=== PATIENT | male | born 1950 | race Caucasian/White ===

== ENCOUNTER 2017-09-29 09:29 | Outpatient (CLI) | payer BC ==
[2017-10-26 12:52] VITALS: BMI 28.6
== END 2017-09-29 09:30 | disposition home or self-care (01) ==
LOC: BICULT 09:29
PROVIDERS: ATTEND Internal Medicine Gastroenterology
DX: I85.00 Esophageal varices without bleeding (principal); K22.9 Disease of esophagus, unspecified; K82.4 Cholesterolosis of gallbladder
CPT/HCPCS: 76705

== ENCOUNTER → 2017-10-27 | Day surgery (SDC) | payer BC ==
[~2017-10-27] MED LIST: Fentanyl 100 MCG/2 ML VIAL ONE; Midazolam HCl 2 mg/2 ml Vial ONE; Sodium Bicarbonate 2.5 MEQ/5 ML VIAL ONE
[2017-10-27 08:05] LABS: #Basophils 0.1 thou/uL (0.0-0.2); #Eosinphils 0.6 thou/uL (0.0-0.7); #Monocytes 0.5 thou/uL (0.11-0.59); #Neutrophils 3.4 thou/uL (1.40-6.50); %Basophils 1.1 % (0.0-1.0); %Eosinophils 11.1 % (0.0-10.0); %Lymphocytes 18.3 % (21.0-51.0); %Monocytes 8.9 % (0.0-10.0); %Neutrophils 60.7 % (42.0-75.0); Hemoglobin 15.6 g/dL (14.0-18.0); Mean Corpuscular HGB CONC 33.9 g/dL (32.0-36.0); Mean Corpuscular Hemoglobin 32.7 pg (27.0-31.0); Mean Corpuscular Volume 96.4 fl (80.0-94.0); Mean Platelet Volume 8.4 fL (7.4-10.4); Platelet Count 171 thou/uL (130-400); RBC Distribution Width 12.7 % (11.5-14.5); Red Blood Cell (RBC) Count 4.77 mill/uL (4.70-6.10); White Blood Cell (WBC) Count 5.5 thou/uL (4.8-10.8)
[2017-10-27 08:13] LABS: Prothrombin Time 13.7 SEC (12.0-14.7)
[2017-10-27 08:14] LABS: PTT 27.2 SEC (22.9-36.1)
[2017-10-27 08:41] VITALS: TEMP 97.4
--- NOTE | 2017-10-27 14:47 | ULT ---
ULTRASOUND GUIDED RANDOM RIGHT HEPATIC LOBE BIOPSY: Date: 10-27-17 History: Reported hepatomegaly, esophageal mass, and varices. Hepatic biopsy was requested. Technique: Procedure including risks and complications were explained to the patient and informed con sent was obtained. Conscious sedation was performed with the intravenous administration of Fentanyl a nd Versed. Approximately 25 micrograms of Fentanyl and 0.5 milligrams were administered intravenously during the exam. Limited sonographic evaluation of the liver was performed. An area in the mid axillary line right upp er quadrant was marked and meticulously prepped and draped in the usual sterile fashion. Skin and sub cutaneous tissues were infiltrated with buffered 1% Lidocaine for local anesthesia. Utilizing [facility] real-time ultrasound guidance, a 17 gauge guide needle was advanced into the most peripheral aspe ct of the right hepatic lobe. Utilizing coaxial technique, a single 18 gauge core needle biopsy speci men was obtained. Autologous clot was then advanced into the most peripheral aspect of the right hepa tic lobe, and the needle was removed. Manual compression was applied for approximately 10 minutes. Fo llow up sonographic evaluation demonstrates no perihepatic fluid or findings to suggest hematoma. Pat ient's vital signs remained stable during the procedure as well as post procedure. A dry sterile dres sing was place and patient was placed in a right lateral position for one hour. Patient was transport ed to radiology nurses holding for further monitoring prior to discharge. IMPRESSION: Technically successful ultrasound guided random right hepatic lobe biopsy. Pathology is currently german tran. POS: [facility]
== END ==
LOC: ULT 07:48
PROVIDERS: ATTEND Internal Medicine Gastroenterology
PROC: 0FB13ZX Excision of Right Lobe Liver, Percutaneous Approach, Diagnostic (ICD-10-PCS; principal; 2017-10-27)
DX: K76.0 Fatty (change of) liver, not elsewhere classified (principal); I85.00 Esophageal varices without bleeding; K22.9 Disease of esophagus, unspecified; J30.89 Other allergic rhinitis; F17.290 Nicotine dependence, other tobacco product, uncomplicated; Z91.011 Allergy to milk products; Z91.012 Allergy to eggs; Z79.82 Long term (current) use of aspirin; Z79.899 Other long term (current) drug therapy
CPT/HCPCS: 36415; 47000; 76942; 85025; 85610; 85730; 88307; 88313; 99152; 99153; J2250; J3010

== ENCOUNTER 2020-07-10 14:38 | Inpatient (IN) | payer BC ==
[~2020-07-10 14:38] MED LIST changes: -Fentanyl 100 MCG/2 ML VIAL ONE; +Iopamidol-370 76% 500 ML 1 ML ONE; -Midazolam HCl 2 mg/2 ml Vial ONE; -Sodium Bicarbonate 2.5 MEQ/5 ML VIAL ONE
[2020-07-10] MEDS ORDERED: Albuterol 200 PUFF (6.7GM INHALER) ONE (15:45)
[2020-07-10] MEDS ORDERED: cefTRIAXone\\ROCEPHIN 2 GM VIAL ONE (15:45)
[2020-07-10] MEDS ORDERED: Magnesium 2 GM/50 ML BAG (IN WATER) ONE (15:45)
[2020-07-10] MEDS ORDERED: Furosemide 40 MG/4 ML VIAL ONE (15:45)
[2020-07-10] MEDS ORDERED: Azithromycin 500 MG VIAL ONE (15:45)
--- NOTE | 2020-07-10 15:51 | RAD ---
RADIOGRAPH CHEST 1 VIEW: DATE: 07/10/2020 TIME: 3:34 PM HISTORY: 70-year-old male with dyspnea COMPARISON: 11/27/2015 FINDINGS: There is a new finding of heterogeneously distributed bilateral reticulonodular interstitial infiltra yohannes. Right midlung field and bilateral bases are most prominent. There is relative sparing of the left mid and upper lung zones. No cardiomegaly. Ectasia and tortuosity of thoracic aorta. Lateral cos tophrenic angles are sharp. No pneumothorax. IMPRESSION: Bilateral heterogeneously distributed reticulonodular infiltrates. These are nonspecific, but one pos sibility is bilateral pneumonia such as COVID-19.
[2020-07-10 16:22] LABS: Hemoglobin 15.9 g/dL (14.0-18.0); Mean Corpuscular HGB CONC 32.2 g/dL (32.0-36.0); Mean Corpuscular Hemoglobin 33.7 pg (27.0-31.0); Mean Platelet Volume 8.8 fL (7.4-10.4); Platelet Count 169 thou/uL (130-400); RBC Distribution Width 14.5 % (11.5-14.5); Red Blood Cell (RBC) Count 4.72 mill/uL (4.70-6.10); White Blood Cell (WBC) Count 7.4 thou/uL (4.8-10.8)
[2020-07-10 16:38] LABS: ALT (SGPT) 29 U/L (8-55); AST (SGOT) 61 U/L (5-34); Albumin 4.1 g/dL (3.4-4.8); Alkaline Phosphatase 169 U/L (40-110); Anion Gap 21 mmol/L (10-20); BUN (Urea Nitrogen) 19 mg/dL (8.4-25.7); Bilirubin, Total 0.7 mg/dL (0.2-1.2); CK (CPK) 75 U/L (30-200); Calc. Creatinine Clearance 0 mL/min (70-130); Calcium 8.9 mg/dL (7.8-10.44); Carbon Dioxide 31 mmol/L (23-31); Chloride 82 mmol/L (98-107); Globulin 2.9 g/dL (2.4-3.5); Glucose 104 mg/dL (80-115); Lipase 11 U/L (8-78); Magnesium 1.8 mg/dL (1.6-2.6); Potassium 4.6 mmol/L (3.5-5.1); Sodium 129 mmol/L (136-145)
[2020-07-10 16:45] LABS: MDiff Complete? YES
[2020-07-10 16:46] LABS: Band 34 % (5-11); Lymphocytes 2 % (21-51); Macrocytosis SLIGHT = 6-15 cells (100X) (0-5/hpf); Monocytes 7 % (0-10); Neutrophil 56 % (42-75); Platelet Morphology Comment Appears Adequate; Polychromasia SLIGHT = 2-3 cells (100X) (0-2/hpf); Reactive Lymphocytes 1 % (0-10); Target Cells SLIGHT = 2-5 cells (100X) (0-1/hpf)
[2020-07-10 17:07] LABS: CKMB 7.9 ng/mL (0-6.6)
[2020-07-10 17:34] LABS: SARS-CoV-2 NAA Rapid Test Not Detected (NotDetected)
[2020-07-10 19:08] LABS: Lactic Acid 2.1 mmol/L (0.5-2.2)
[2020-07-10 19:17] LABS: Troponin I 0.126 ng/mL (< 0.028)
[2020-07-10] MEDS ORDERED: Ondansetron ODT 4 MG TAB PO PRN (19:47)
[2020-07-10] MEDS ORDERED: Senokot S 8.6-50 MG TAB PO PRN (19:47)
[2020-07-10] MEDS ORDERED: Bisacodyl 5 MG TAB PO PRN (19:47)
[2020-07-10 20:59] VITALS: BMI 28.4
[2020-07-10 22:37] LABS: Troponin I 0.171 ng/mL (< 0.028)
--- NOTE | 2020-07-10 22:43 | PDOC.FPRHP ---
- History of Present Illness Chief Complaint: SOB History of Present Illness: Pt is a 70 yo M with PMH of COPD, HTN, GERD, HLD, depression, alcoholism who presents today with cc of SOB. Patient states he has been short of breath since April but over the last few weeks this has increased. His encouraged him to come to the ED to get evaluated. He states he has been unable to lay flat in bed at night and has been sleeping in a recliner. He also endorses LE swelling which makes it hard for him to walk. He states he usually has issues with allergies and it makes it hard for him to breathe, but does not take me dications for this. He thinks his allergies is what is causing his shortness of breath. He endorses a cough which is new over the last few days with increased sputum production. He does not require home O2. He denies fever, chills, GARSIA, CP, abdominal pain. He sees Dr. Brower as his endocrinology physician but does not have a basketballs and footballs reverser he regularly sees. He saw one in the past only for a stress test. ED Course: Rocephin, Azithromycin, Lasix - Allergies/Adverse Reactions Allergies Allergy/AdvReac Type Severity Reaction Status Date / Time No Known Allergies Allergy Unverified 10/26/17 12:43 - Home Medications Medication Instructions Recorded Confirmed Type Albuterol Sulfate [Proair HFA] 1 puff INH Q4HR PRN 10/26/17 07/11/20 History Amlodipine Besylate [amLODIPine 10 mg PO DAILY 10/26/17 07/11/20 History Besylate] Ascorbic Acid [Vitamin C] 500 mg PO DAILY 10/26/17 07/11/20 History Aspirin 325 mg PO DAILY PRN 10/26/17 07/11/20 History Citalopram Hydrobromide 20 mg PO DAILY 10/26/17 07/11/20 History [Citalopram HBr] Fluticasone Propionate [Flovent 50 mcg IH PRN PRN 10/26/17 07/11/20 History Diskus] Levocetirizine Dihydrochloride 5 mg PO DAILY PRN 10/26/17 07/11/20 History [Xyzal] Lisinopril 40 mg PO DAILY 10/26/17 07/11/20 History Omeprazole Magnesium [Prilosec] 10 mg PO DAILY 10/26/17 07/11/20 History Pravastatin Sodium 20 mg PO HS 10/26/17 07/11/20 History Psyllium Husk [Metamucil] 0.52 gm PO PRN PRN 10/26/17 07/11/20 History Umeclidinium/Vilanterol [Anoro 1 box INH PRN PRN 10/26/17 07/11/20 History Ellipta 62.5/25 MCG INH] - History PMHx: COPD, HTN, GERD, HLD, Depression, alcoholism PSHx: carpal tunnel surgery FHx: stroke in parent Social: 08/09-1ppd for 50+ years, occasional marijuana use, daily alcohol use (unable to disclose how much daily) - Review of Systems General: reports: fatigue. denies: fever/chills Respiratory: reports: cough, shortness of breath, exercise intolerance Cardiovascular: reports: edema. denies: chest pain Gastrointestinal: denies: nausea, vomiting, abdominal pain Skin: denies: rashes Neurological: denies: syncope, weakness Psychological: denies: anxiety, depression - Vital signs BP: 150/92 HR: 96 RR: 22 Tmax: 98.3 Pox: 97% on HF Wt: 85kg - Physical Exam Constitutional: awake, alert and oriented HEENT: normocephalic and atraumatic, grossly normal vision, grossly normal hearing -HEENT: JVD apparent on exam up to midneck when sitting up right Neck: supple Heart: RRR, normal S1/S2, no murmurs/rubs/gallops -Heart: 2+ edema in b/l LE -Lungs: diffuse wheezing, distant lung sounds. on HF Abdomen: soft, non-tender Musculoskeletal: normal tone, ROM grossly normal Neurological: no focal deficit Skin: no rash/lesions, no jaundice Psychiatric: normal mood and affect, good judgment and insight FMR H&P: Results - Labs Result Diagrams: 07/11/20 02:42 07/11/20 02:42 Lab results: WBC 7.4 thou/uL (4.8-10.8) 07/10/20 15:52 Hgb 15.9 g/dL (14.0-18.0) 07/10/20 15:52 Hct 49.3 % (42.0-52.0) 07/10/20 15:52 MCV 104.0 fL (78.0-98.0) H 07/10/20 15:52 Plt Count 169 thou/uL (130-400) 07/10/20 15:52 Band Neuts % (Manual) 34 % (5-11) H 07/10/20 15:52 Sodium 129 mmol/L (136-145) L 07/10/20 15:52 Potassium 4.6 mmol/L (3.5-5.1) 07/10/20 15:52 Chloride 82 mmol/L (98-107) L 07/10/20 15:52 Carbon Dioxide 31 mmol/L (23-31) 07/10/20 15:52 BUN 19 mg/dL (8.4-25.7) 07/10/20 15:52 Creatinine 0.80 mg/dL (0.7-1.3) 07/10/20 15:52 Glucose 104 mg/dL (80-115) 07/10/20 15:52 Lactic Acid 2.1 mmol/L (0.5-2.2) 07/10/20 18:42 Calcium 8.9 mg/dL (7.8-10.44) 07/10/20 15:52 Total Bilirubin 0.7 mg/dL (0.2-1.2) 07/10/20 15:52 AST 61 U/L (5-34) H 07/10/20 15:52 ALT 29 U/L (8-55) 07/10/20 15:52 Alkaline Phosphatase 169 U/L (40-110) H 07/10/20 15:52 Creatine Kinase 75 U/L (30-200) 07/10/20 15:52 CK-MB (CK-2) 7.9 ng/mL (0-6.6) H* 07/10/20 15:52 B-Natriuretic Peptide 265.1 pg/mL (0-100) H 07/10/20 15:52 Serum Total Protein 7.0 g/dL (5.8-8.1) 07/10/20 15:52 Albumin 4.1 g/dL (3.4-4.8) 07/10/20 15:52 Lipase 11 U/L (8-78) 07/10/20 15:52 - EKG Interpretation EKG: NSR FMR H&P: A/P - Plan Hypoxia 2/2 COPD exacerbation and heart failure exacerbation -satting in the 80s without O2. Satting in the 90s with high flow -CXR suggestive of COVID PNA, but rapid swab is negative -follow up chest CT -history of COPD * increased cough, sputum production, new oxygen requirement * on home inhalers * Duonebs YAHIR q6H, q4H PRN * prednisone 40 mg daily for 5 days, start date 07/10 -no history of HF * JVD present on exam, 2+ pitting edema b/l LE * BNP 265 * echo pending * Lasix naive, will initiate Lasix 40mg BID Elevated Dimer -elevated at 1.05 -follow up CTA Elevated troponin -denies CP -.054>.126 -continue to trend Transaminitis -ALT 61 and Alk phos 169. possibly transient vs 2/2 poor perfusion on DDx -follow up outpatient HTN -aware, continue home meds GERD -aware, continue home meds HLD -aware, continue home meds Depression -aware, continue home meds Daily alcohol use -aware, ASE protocol in place PCP: [facility] Fluids: KVO Diet: Code: FULL DVT ppx: Lovenox Dispo: admit to IMCU, inpatient. Anticipated LOS > 48 hours FMR H&P: Upper Level - Plan Date/Time: 07/10/202241 I, Arun See PGY3, have evaluated this patient and agree with findings/plan as outlined by architect intern resident. Pertinent changes/additions are listed here. 70-year-old man with medical history of COPD and CHF presenting for worsening shortness of breath. On my interview he was a challenging historian and unable to describe onset of symptoms but states that he has been using his albuterol inhaler much more recently. He is possibly with advanced COPD considering he takes Trelegy which is triple therapy. Dr. Brower is his endocrinology physician. He is not aware of any transforming factors or exacerbating factors to his symptoms. No fever no chills no significant sick contacts. He also states his legs have been swelling recently and that he has to sleep in a recliner with his legs propped up to "improve circulation ". He has seen Dr. Hinojosa once for a stress test but has no previous diagnosis of heart failure per patient. On exam he is tachypneic at 21 and has distant breath sounds with expiratory wheezing bilaterally, his heart has regular rate and rhythm with no murmur, he is on 4 L of oxygen satting in the mid 90s. 2+ lower extremity edema, elevated JVD extending up to the ear when laying back to 30 degrees. A/P Volume overload A- Exam suspicious for CHF exacerbation vs. R heart strain though no Dx. of CHF P- f/u on CTA chest to r/o PE/R heart failure -will give additional lasix tonight and start BID dosing -TTE COPD exacerbation A- stable on HFNC, distant breath sounds and wheezing on exam. P- prednisone x5 days, duonebs EtOH missuse A- drinks unknown amount of liquor per day, starts in AM but desires to quit P- ASE protocol, will have low threshold to start librium taper if he requires benzos PUI A- negative covid test in ER however with new O2 requirement and suspicious CXR will keep on precautions for now. P- droplet precautions -repeat PCR test Transaminitis A- ALT 61 and Alk phos 169. possibly transient vs 2/2 poor perfusion on DDx P- f/u outpt Depression -pt does not know home med, will restart if he remembers GERD, HLD -continue home medications CODE: FULL PCP: [facility] IVF: KVO dispo: inpatient tele, anticipate greater than 2 midnights Addendum - Attending - Attending Attestation Date/Time: 07/11/20 1040 I personally evaluated the patient and discussed the management with Dr. Valles and Esa last night at time of admission I agree with the History, Examination, Assessment and Plan documented above with any addition or exceptions noted below.
[2020-07-10] MEDS ORDERED: predniSONE 20 MG TAB PO SCH (23:00)
[2020-07-10] MEDS ORDERED: Furosemide 20 MG/2 ML VIAL SLOW IVP SCH (23:00)
--- NOTE | 2020-07-10 23:06 | CT ---
CT ANGIOGRAM THORAX WITH IV CONTRAST AND 3D RECONSTRUCTIONS: 07/10/20 HISTORY: Shortness of breath for several days. FINDINGS: No filling defects are seen in the pulmonary arteries to suggest a pulmonary embolus. The thoracic aorta is normal in caliber without evidence of an aortic dissection. Vascular calcificat ions are seen in the thoracic aorta as well as in the coronary arteries. The esophagus is dilated and filled with heterogeneous material including a focal area of increased d ensity material within the thoracic esophagus. Esophagus is dilated throughout the thoracic spine. Th ere is a tiny gas density focus seen at the posterolateral aspect of the upper thoracic trachea proba lola related to tiny tracheal diverticulum. There is a minimal amount of heterogeneous material within the proximal thoracic trachea which may be related to secretions. There are a few filling defects seen within the lower lobe bronchi with mild peribronchial thickening present which could be related to bronchiolitis with filling defects possibly related to mucosal plu gging. There is minimal bronchiectasis at the posteromedial right lung base. There are interstitial densities as well as patchy parenchymal air space densities seen in the upper lobes bilaterally, greater on the right with small focal areas of consolidation in the right upper lo be. Findings are worrisome for infectious or inflammatory process. A typical infectious process is a possibility. There are bibasilar areas of consolidation probably related to bibasilar atelectasis. There are mild emphysematous changes with peripheral blebs seen scattered within the lungs bilaterall y, greater in the upper lung zones than on the right. Coronary artery calcifications are present. The heart is normal in size. There is mildly prominent soft tissue density in each hilar region which could be related to reactive lymphadenopathy. No acute findings are seen in the visualized upper abdomen. Calcified granulomata are seen in the spl een. There is a subcentimeter too small to characterize hypodense lesion in the superior pole right kidney . IMPRESSION: 1. Interstitial and patchy parenchymal densities in the upper lobes bilaterally with small focal areas of consolidation in the right upper lobe. These findings are worrisome for infectious process and possibly atypical infectious process. This is not typical pattern and location for aspiration pne umonitis. 2. Minimal bronchiectasis right lower lobe. A few filling defects are seen in bilateral lower lo be bronchioles which could be related to mucous plugging or debris. 3. Dilatation of the esophagus with heterogeneous debris/material within the esophagus including increased density material in the mid esophagus. 4. Mildly prominent hilar lymph nodes which may be represent reactive lymphadenopathy. 5. No CT evidence of a pulmonary embolus. 6. Small amount of debris/secretions within the posterior upper thoracic trachea. 7. Periapical lucency involving posterior right mandibular teeth partially imaged suggesting per iapical abscess. POS: [facility]
[2020-07-11 03:02] LABS: Hemoglobin 14.3 g/dL (14.0-18.0); Mean Corpuscular HGB CONC 32.2 g/dL (32.0-36.0); Mean Platelet Volume 8.8 fL (7.4-10.4); Platelet Count 177 thou/uL (130-400); RBC Distribution Width 14.4 % (11.5-14.5); Red Blood Cell (RBC) Count 4.32 mill/uL (4.70-6.10); White Blood Cell (WBC) Count 4.6 thou/uL (4.8-10.8)
[2020-07-11 03:10] LABS: SARS-CoV-2 MS2 Positive; SARS-CoV-2 N Gene Negative; SARS-CoV-2 S Gene Negative; SARS-CoV-2 by NAA Not Detected (NotDetected); SARS-CoV-2 orf1ab Negative
[2020-07-11 03:37] LABS: Anion Gap 15 mmol/L (10-20); BUN (Urea Nitrogen) 18 mg/dL (8.4-25.7); Carbon Dioxide 35 mmol/L (23-31); Chloride 83 mmol/L (98-107); Potassium 4.1 mmol/L (3.5-5.1); Sodium 129 mmol/L (136-145)
[2020-07-11 03:38] LABS: ALT (SGPT) 20 U/L (8-55); AST (SGOT) 34 U/L (5-34); Albumin 3.6 g/dL (3.4-4.8); Alkaline Phosphatase 129 U/L (40-110); Bilirubin, Total 0.4 mg/dL (0.2-1.2); Calc. Creatinine Clearance 108 mL/min (70-130); Calcium 8.7 mg/dL (7.8-10.44); Globulin 2.8 g/dL (2.4-3.5); Glucose 134 mg/dL (80-115); Protein, Total 6.4 g/dL (5.8-8.1)
[2020-07-11] MEDS ORDERED: FLU VACC QS2020-21(65YR UP)/PF 240 MCG/0.7 ML SYRINGE IM ONE (03:45)
[2020-07-11 03:54] LABS: Band 9 % (5-11); Lymphocytes 4 % (21-51); MDiff Complete? YES; Monocytes 2 % (0-10); Neutrophil 85 % (42-75); Toxic Granulation SLIGHT
[2020-07-11 04:00] LABS: Troponin I 0.223 ng/mL (< 0.028)
--- NOTE | 2020-07-11 06:20 | PDOC.FM ---
- Subjective Subjective: Mr. Velasquez reports feeling better this morning. He says his breathing has improved. He explains he has been worsening for several months in regards to having trouble breathing. He complains of some abdominal gas and discomfort but says he drank a Sprite and that helped. - Objective Vital Signs & Weight: Vital Signs (12 hours) Temp Pulse Ox 07/11/20 04:00 98.8 F 07/11/20 00:45 99 07/10/20 20:14 97.3 F L 98 Weight Weight 84.776 kg Most Recent Monitor Data Heart Rate from ECG 93 NIBP 151/97 NIBP BP-Mean 115 Respiration from ECG 32 SpO2 100 I&O: 07/09/20 07/10/20 07/11/20 06:59 06:59 06:59 Intake Total 720 Output Total 875 Balance -155 Result Diagrams: 07/11/20 02:42 07/11/20 02:42 Radiology Reviewed by me: Yes Radiology: CTA: b/l upper lobe consolidations, bronchiectasis, hilar lymphadenopathy, debris in trachea, periapical abscess in mandibular teeth Phys Exam - Physical Examination Constitutional: NAD HEENT: moist MMs, sclera anicteric Neck: full ROM (JVD on exam) Respiratory: wheezing present Cardiovascular: RRR Gastrointestinal: soft, non-tender Musculoskeletal: pulses present, edema present Neurological: moves all 4 limbs Psychiatric: normal affect, A&O x 3 Skin: no rash Dx/Plan - Plan Plan: Hypoxia 2/2 COPD exacerbation and heart failure exacerbation -Presented satting in the 80s without O2 and 90s with high flow. 96% on 4L NC this morning -CXR suggestive of COVID PNA, but rapid swab is negative -Chest CT: b/l upper lobe consolidations, bronchiectasis, hilar lymphadenopathy, debris in trachea, periapical abscess in mandibular teeth -history of COPD * increased cough, sputum production, new oxygen requirement * on home inhalers * Duonebs YAHIR q4H, q2H PRN * prednisone 40 mg daily for 5 days, start date 07/10 -no history of HF * JVD present on exam, 2+ pitting edema b/l LE * BNP 265 * echo pending * Lasix 40mg BID * strict I/Os * daily weights Possible CAP -Chest CT: b/l upper lobe consolidations, bronchiectasis, hilar lymphadenopathy -Continue to monitor WBC and temperature -Procal pending -History of significant mold exposure in [place] Elevated Dimer -elevated at 1.05 -CTA negative for PE Elevated troponin -denies CP -.054, 0.126, 0.171 Transaminitis -ALT 61 and Alk phos 169. possibly transient vs 2/2 poor perfusion on DDx -follow up outpatient HTN -continue home meds GERD -continue home meds HLD -continue home meds Depression -continue home meds Daily alcohol use -ASE protocol in place PCP: [facility] Fluids: KVO Diet: HH Code: FULL DVT ppx: Lovenox Dispo: Continue diuresis, breathing treatments, and antibiotic treatment. Monitor for urine output and improvement of respiratory status. ECHO pending. Addendum - Attending - Attending Attestation Date/Time: 07/11/20 1222 I personally evaluated the patient and discussed the management with Dr. Carver. I agree with the History, Examination, Assessment and Plan documented above with any addition or exceptions noted below. Tachypneic, tachycardic and hypoxic. Clearly volume overloaded. Treat empirically for COPD exac and new onset CHF. Workup to be completed. Monitor Na. TnI likely from demand.
[2020-07-11] MEDS: Furosemide 40 MG/4 ML VIAL SLOW IVP SCH ×2 (06:32→13:38)
--- NOTE | 2020-07-11 07:43 | ULT ---
EXAM: Bilateral lower extremity venous Doppler HISTORY: Bilateral lower extremity pitting edema. Covid positive. FINDINGS: Grayscale, color-flow, Doppler evaluation, spectral analysis of the bilateral lower extremity venous structures is performed with 2-D imaging. The bilateral common femoral, superficial femoral, popliteal, posterior tibial, proximal greater saphenous and profunda femoral veins are imaged. There is normal luminal compressibility, flow, and augmentation in the visualized deep venous structu res of the bilateral lower extremities. There is prominent subcutaneous edema in the bilateral lower extremities for IMPRESSION: 1. No evidence of a deep vein thrombosis in the visualized deep venous structures bilateral lower ext remities. 2. Prominent bilateral lower extremity subcutaneous edema.
[2020-07-11] MEDS: predniSONE 20 MG TAB PO SCH (08:03)
[2020-07-11] MEDS: Loratadine 10 MG TAB PO SCH (08:03)
[2020-07-11] MEDS: Acetaminophen 325 MG TAB PO PRN ×2 (08:04→21:29)
[2020-07-11] MEDS: Citalopram 20 MG TAB PO SCH (08:04)
[2020-07-11] MEDS: Amlodipine 10 MG TAB PO SCH (08:04)
[2020-07-11] MEDS: Enoxaparin Sodium 40 MG/0.4 ML SYRINGE SC SCH (08:05)
[2020-07-11] MEDS ORDERED: Albuterol Sulfate 2.5 mg/3 ml Neb NEB PRN (09:21)
--- NOTE | 2020-07-11 10:20 | CON ---
DATE OF CONSULTATION: 07/11/2020 CONSULTING PHYSICIAN: [employer]. REASON FOR CONSULTATION: Shortness of breath. HISTORY OF PRESENT ILLNESS: The patient is a 70-year-old male, who presented to the hospital yesterday with complaints of increasing shortness of breath over the last several days prior to admission. He has a known history of severe chronic obstructive pulmonary disease. He had pulmonary function test performed by Dr. Leonarda hines in 2016, which showed an FEV1 of 0.63 L, which was 22% predicted and a DLCO of 2, which was 8% predicted. He has not been on oxygen at home. He has continued to smoke 6 to 8 cigarettes per day. He has had some cough and congestion. He has an x-ray showing increased interstitial infiltrates. I am not sure about his baseline cardiac status. PAST MEDICAL HISTORY: 1. COPD - severe. 2. Hypertension. 3. Acid reflux. 4. Hyperlipidemia. 5. Depression. 6. Alcoholism. PAST SURGICAL HISTORY: Carpal tunnel release. FAMILY MEDICAL HISTORY: Stroke. SOCIAL HISTORY: Smoking at least a half pack a day for 50 years. Very occasional use of marijuana. Drinks alcohol daily. He is retired. MEDICATIONS: Prior to admission; 1. Trelegy Ellipta. 2. Albuterol HFA metered-dose inhaler. 3. Vitamin C. 4. Amlodipine. 5. Aspirin. 6. Citalopram. 7. Fluticasone. 8. Xyzal. 9. Lisinopril. 10. Pravastatin. 11. Omeprazole. 12. Metamucil. REVIEW OF SYSTEMS: Twelve-point review of systems otherwise negative except for leg swelling. PHYSICAL EXAMINATION: VITAL SIGNS: Temperature 98.1, pulse rate 93, blood pressure 120/68, O2 saturation 97%. Total intake for 24 hours 720, output 875. HEENT: Unremarkable. NECK: No adenopathy or JVD. LUNGS: Bilateral hnll-pm-grjxaoaw expiratory wheezing. CARDIAC: S1 and S2. Regular. ABDOMEN: Soft and nontender. EXTREMITIES: No clubbing, cyanosis, or edema. LABORATORY DATA: BNP level is 265. Sodium 129, potassium 4.1, chloride 83, CO2 of 35, BUN 18, creatinine 0.7, glucose 134. White blood cell count 4.6, hematocrit 44.3, and platelet count 177. COVID test and COVID PCR were both negative. ASSESSMENT: 1. Chronic obstructive pulmonary disease with exacerbation. 2. Question of concurrent systolic heart failure. 3. Hypoxemic respiratory failure. PLAN: He could be safely transferred to the medical unit while further tests are being performed. I agree with steroids, nebulization treatments, low-flow oxygen, etc. He may need to be diuresed as further information comes about from his cardiac workup. Pulmonary will be available as needed. Job ID: [id number]
[2020-07-11 10:30] LABS: Troponin I 0.415 ng/mL (< 0.028)
[2020-07-11] MEDS: Fluticasone Propionate Nasal Spray 16 gm Bottle NASAL SCH (11:15)
[2020-07-11] MEDS: Azithromycin 500 MG in Sodium Chloride 0.9% 250 ML 250 ML IVPB SCH (13:37)
[2020-07-11 14:25] LABS: BUN (Urea Nitrogen) 16 mg/dL (8.4-25.7); Calc. Creatinine Clearance 121 mL/min (70-130); Calcium 7.8 mg/dL (7.8-10.44); Glucose 163 mg/dL (80-115)
[2020-07-11 14:31] LABS: Troponin I 0.298 ng/mL (< 0.028)
[2020-07-11 14:36] LABS: Anion Gap 20 mmol/L (10-20); Carbon Dioxide 32 mmol/L (23-31); Chloride 85 mmol/L (98-107); Potassium 3.5 mmol/L (3.5-5.1); Sodium 133 mmol/L (136-145)
[2020-07-11] MEDS ORDERED: cefTRIAXone\\ROCEPHIN 1 GM in Sodium Chloride 0.9% 100 ML IVPB SCH (16:00)
[2020-07-11] MEDS ORDERED: Simvastatin 10 MG TAB PO SCH (21:00)
[2020-07-12] MEDS ORDERED: Ketorolac Tromethamine 30 MG/ML VIAL IVP SCH (01:00)
[2020-07-12 04:51] LABS: #Eosinphils 0.1 thou/uL (0.0-0.7); #Lymphocytes 0.8 thou/uL (1.20-3.40); #Monocytes 0.9 thou/uL (0.11-0.59); #Neutrophils 4.4 thou/uL (1.40-6.50); %Eosinophils 0.8 % (0.0-10.0); %Lymphocytes 13.4 % (21.0-51.0); %Monocytes 14.8 % (0.0-10.0); Hemoglobin 13.5 g/dL (14.0-18.0); Mean Corpuscular HGB CONC 31.8 g/dL (32.0-36.0); Mean Corpuscular Hemoglobin 33.1 pg (27.0-31.0); Mean Platelet Volume 8.6 fL (7.4-10.4); Platelet Count 167 thou/uL (130-400); RBC Distribution Width 14.5 % (11.5-14.5); Red Blood Cell (RBC) Count 4.08 mill/uL (4.70-6.10); White Blood Cell (WBC) Count 6.1 thou/uL (4.8-10.8)
[2020-07-12 04:57] LABS: ALT (SGPT) 20 U/L (8-55); AST (SGOT) 39 U/L (5-34); Albumin 3.3 g/dL (3.4-4.8); Alkaline Phosphatase 107 U/L (40-110); BUN (Urea Nitrogen) 17 mg/dL (8.4-25.7); Bilirubin, Total 0.4 mg/dL (0.2-1.2); Calc. Creatinine Clearance 110 mL/min (70-130); Calcium 8.6 mg/dL (7.8-10.44); Globulin 2.6 g/dL (2.4-3.5); Glucose 125 mg/dL (80-115); Protein, Total 5.9 g/dL (5.8-8.1)
[2020-07-12 05:08] LABS: Anion Gap 15 mmol/L (10-20); Carbon Dioxide 39 mmol/L (23-31); Chloride 80 mmol/L (98-107); Potassium 3.4 mmol/L (3.5-5.1); Sodium 131 mmol/L (136-145)
[2020-07-12] MEDS: Furosemide 40 MG/4 ML VIAL SLOW IVP SCH ×2 (06:05→16:10)
--- NOTE | 2020-07-12 06:08 | PDOC.FM ---
- Subjective Subjective: Reports SOB and wheezing is unchanged compared to yesterday. States bilateral lower extremity edema is significantly improved. Has not been using the Duoneb Q2H PRN. Denies headache, vision changes, chest pain, cough and abdominal pain. - Objective MAR Reviewed: Yes Vital Signs & Weight: Vital Signs (12 hours) Temp Pulse Resp BP Pulse Ox 07/12/20 04:00 98.2 F 91 16 140/86 93 L 07/12/20 02:47 93 L 07/12/20 02:46 93 L 07/11/20 23:24 92 L 07/11/20 20:31 92 L 07/11/20 20:28 92 L 07/11/20 19:42 99.1 F 100 22 H 120/69 95 Weight Weight 79.243 kg Most Recent Monitor Data Heart Rate from ECG 102 NIBP 146/94 NIBP BP-Mean 111 Respiration from ECG 32 SpO2 94 I&O: 07/10/20 07/11/20 07/12/20 06:59 06:59 06:59 Intake Total 720 422 Output Total 875 1775 Balance -155 -1353 Result Diagrams: 07/12/20 04:06 07/12/20 04:06 Phys Exam - Physical Examination Constitutional: NAD HEENT: moist MMs, sclera anicteric Neck: supple, full ROM Respiratory: no rales, no rhonchi, wheezing present (throughout lung currie) Moving air well Cardiovascular: RRR, no significant murmur Gastrointestinal: soft, positive bowel sounds Musculoskeletal: edema present (1+ pitting edema) Neurological: non-focal Psychiatric: normal affect, A&O x 3 Skin: no rash Dx/Plan - Plan Plan: Hypoxia 2/2 COPD exacerbation and new onset HF Presented satting in the 80s without O2 and 90s with high flow. JVD present on exam, 2+ pitting edema b/l LE. BNP 265. -CXR suggestive of COVID PNA, but rapid swab is negative -Chest CT: b/l upper lobe consolidations, bronchiectasis, hilar lymphadenopathy, debris in trachea, periapical abscess in mandibular teeth -Echo 07/11: EF 50-55%, diastolic dysfunction, mild tricuspid regurg -Continue home COPD inhalers -Continue duoneb rosi Q4H, PRN Q2H -Continue prednisone 40 mg daily (07/10) for 5 days, Day 3 today -Continue Lasix 40mg BID -Continue Azithro (07/10) -Continue strict I/Os, daily weights Possible CAP History of significant mold exposure in [place] -Chest CT: b/l upper lobe consolidations, bronchiectasis, hilar lymphadenopathy -Procal .06 -Continue Azithro. Discontinue Rocephin (07/10). Hypokalemia Likely 2/2 duoneb use -40 K this am -Monitor with am BMP Chronic hyponatremia Na 129 -> 133 -> 131. At baseline per chart review -Encourage PO intake Elevated D-Dimer -elevated at 1.05 -CTA negative for PE Indeterminate troponin -Trend .054, 0.126, 0.171, 0.22, 0.415, 0.298 -EKG PRN for CP Transaminitis, resolved -Likely transient vs 2/2 poor perfusion -follow up outpatient HTN -continue home meds GERD -continue home meds HLD -continue home meds Depression -continue home meds Daily alcohol use -ASE protocol in place PCP: [facility] Code: FULL DVT ppx: Lovenox Dispo: Home pending symptom improvement and further medical management Addendum - Attending - Attending Attestation Date/Time: 07/12/20 3318 I personally evaluated the patient and discussed the management with Dr. Martinez. I agree with the History, Examination, Assessment and Plan documented above with any addition or exceptions noted below. Acute hypoxic resp failure COPD Exac HFpEF- new onset -O2 to keep sats above 90%, steroids, nebs -Lasix IV Will most likely need home O2.
[2020-07-12] MEDS ORDERED: Potassium Chloride 20 MEQ TAB PO SCH (06:30)
[2020-07-12] MEDS: Amlodipine 10 MG TAB PO SCH (08:11)
[2020-07-12] MEDS: Citalopram 20 MG TAB PO SCH (08:12)
[2020-07-12] MEDS: Loratadine 10 MG TAB PO SCH (08:12)
[2020-07-12] MEDS: predniSONE 20 MG TAB PO SCH (08:12)
[2020-07-12] MEDS: Enoxaparin Sodium 40 MG/0.4 ML SYRINGE SC SCH (08:13)
[2020-07-12] MEDS: Fluticasone Propionate Nasal Spray 16 gm Bottle NASAL SCH (08:15)
--- NOTE | 2020-07-12 11:26 | EKG ---
Test Reason : Blood Pressure : / mmHG Vent. Rate : 100 BPM Atrial Rate : 100 BPM P-R Int : 170 ms QRS Dur : 116 ms QT Int : 376 ms P-R-T Axes : 073 027 047 degrees QTc Int : 485 ms Normal sinus rhythm Possible Left atrial enlargement Incomplete right bundle branch block Prolonged QT Abnormal ECG Confirmed by SHELLEY BERNARDO ([id number]), story editor BETHANIE ATKINS ([id number]) on 07/12/2020 11:25:46 AM Referred By: Confirmed By:SHELLEY BERNARDO
[2020-07-12] MEDS: Acetaminophen 325 MG TAB PO PRN ×2 (12:57→21:50)
[2020-07-12] MEDS: Azithromycin 500 MG in Sodium Chloride 0.9% 250 ML 250 ML IVPB SCH (16:38)
[2020-07-12] MEDS: Simvastatin 5 MG TAB PO SCH (21:50)
[2020-07-13 04:35] LABS: #Eosinphils 0.1 thou/uL (0.0-0.7); #Lymphocytes 0.7 thou/uL (1.20-3.40); #Monocytes 0.7 thou/uL (0.11-0.59); #Neutrophils 4.1 thou/uL (1.40-6.50); %Basophils 0.2 % (0.0-1.0); %Eosinophils 1.1 % (0.0-10.0); %Lymphocytes 13.2 % (21.0-51.0); %Monocytes 12.1 % (0.0-10.0); %Neutrophils 73.4 % (42.0-75.0); Hemoglobin 14.7 g/dL (14.0-18.0); Mean Corpuscular HGB CONC 32.2 g/dL (32.0-36.0); Mean Corpuscular Hemoglobin 33.6 pg (27.0-31.0); Mean Platelet Volume 8.3 fL (7.4-10.4); Platelet Count 173 thou/uL (130-400); RBC Distribution Width 14.5 % (11.5-14.5); Red Blood Cell (RBC) Count 4.39 mill/uL (4.70-6.10); White Blood Cell (WBC) Count 5.5 thou/uL (4.8-10.8)
[2020-07-13 04:58] LABS: ALT (SGPT) 28 U/L (8-55); AST (SGOT) 42 U/L (5-34); Albumin 3.6 g/dL (3.4-4.8); Alkaline Phosphatase 115 U/L (40-110); BUN (Urea Nitrogen) 14 mg/dL (8.4-25.7); Bilirubin, Total 0.6 mg/dL (0.2-1.2); Calc. Creatinine Clearance 117 mL/min (70-130); Calcium 8.9 mg/dL (7.8-10.44); Globulin 2.8 g/dL (2.4-3.5); Glucose 103 mg/dL (80-115); Protein, Total 6.4 g/dL (5.8-8.1)
[2020-07-13 05:08] LABS: Anion Gap 16 mmol/L (10-20); Carbon Dioxide 38 mmol/L (23-31); Chloride 80 mmol/L (98-107); Potassium 3.9 mmol/L (3.5-5.1); Sodium 130 mmol/L (136-145)
[2020-07-13] MEDS: Furosemide 40 MG/4 ML VIAL SLOW IVP SCH (05:30)
[2020-07-13] MEDS: Acetaminophen 325 MG TAB PO PRN ×2 (05:38→21:55)
--- NOTE | 2020-07-13 05:59 | PDOC.FM ---
- Subjective Subjective: Reports SOB and wheezing is unchanged from yesterday. Reports his legs "look like chicken legs" after receiving lasix. Complains of increased frequency of urination overnight. Denies headache, vision changes, chest pain, and abdominal pain. - Objective MAR Reviewed: Yes Vital Signs & Weight: Vital Signs (12 hours) Temp Pulse Resp BP Pulse Ox 07/13/20 04:00 97.7 F 93 19 151/86 H 96 07/13/20 03:47 91 L 07/13/20 00:10 94 16 143/84 H 97 07/12/20 23:20 92 L 07/12/20 23:19 92 L 07/12/20 19:30 97.7 F 98 20 122/74 92 L 07/12/20 18:34 91 L Weight Weight 75.296 kg Most Recent Monitor Data Heart Rate from ECG 102 NIBP 146/94 NIBP BP-Mean 111 Respiration from ECG 32 SpO2 94 I&O: 07/11/20 07/12/20 07/13/20 06:59 06:59 06:59 Intake Total 720 422 Output Total 875 1775 Balance -155 -1353 Result Diagrams: 07/13/20 04:11 07/13/20 04:11 Phys Exam - Physical Examination Constitutional: NAD HEENT: moist MMs, sclera anicteric Neck: full ROM Respiratory: wheezing present (expiratory wheezing throughout lung currie, improved compared to yesterday) Cardiovascular: RRR, no significant murmur Gastrointestinal: soft, non-tender, positive bowel sounds Musculoskeletal: edema present (scant pitting edema) Neurological: moves all 4 limbs Psychiatric: normal affect, A&O x 3 Skin: no rash Dx/Plan - Plan Plan: Acute hypoxic respiratory failure, improved 2/2 COPD exacerbation and new onset HF Presented satting in the 80s without O2 and 90s with high flow. JVD present on exam, 2+ pitting edema b/l LE. BNP 265. -CXR suggestive of COVID PNA, but rapid swab is negative -Chest CT: b/l upper lobe consolidations, bronchiectasis, hilar lymphadenopathy, debris in trachea, periapical abscess in mandibular teeth -Echo 07/11: EF 50-55%, diastolic dysfunction, mild tricuspid regurg -Continue home COPD inhalers -Continue duoneb rosi Q4H, PRN Q2H -Continue prednisone 40 mg daily (07/10) for 5 days, Day 4 today -Discontinue Lasix 40mg IV BID. Will start 40mg PO daily on 07/14. -Continue Azithro (07/10), Day 4 today -Start Coreg 3.125mg BID -Continue strict I/Os, daily weights -Will need home O2. Consult CM Possible CAP, ruled out History of significant mold exposure in [place] -Chest CT: b/l upper lobe consolidations, bronchiectasis, hilar lymphadenopathy -Procal .06 therefore unlikely bacterial infection -Continue Azithro. Discontinue Rocephin (07/10). Hypokalemia, resolved Likely 2/2 duoneb use. K 3.4 -> 3.9 after 40 mEq -Monitor with am BMP Chronic hyponatremia Na 129 -> 133 -> 131-> 130. At baseline per chart review -Encourage PO intake Elevated D-Dimer -elevated at 1.05 -CTA negative for PE Indeterminate troponin -Trend .054, 0.126, 0.171, 0.22, 0.415, 0.298 -EKG PRN for CP Transaminitis, resolved -Likely transient vs 2/2 poor perfusion -follow up outpatient HTN -continue home meds GERD -continue home meds HLD -continue home meds Depression -continue home meds Daily alcohol use -ASE protocol in place PCP: Colette Code: FULL DVT ppx: Lovenox Dispo: Home pending symptom improvement and further medical management Addendum - Attending - Attending Attestation Date/Time: 07/13/20 [id number] I personally evaluated the patient and discussed the management with Dr. Martinez I agree with the History, Examination, Assessment and Plan documented above with any addition or exceptions noted below. COPD exac- steroid, nebs, O2. Work on home O2 HFpEF exac- has diuresed very well. back off lasix to once daily today. Hypoxia- improving. Expect needs a few more days.
[2020-07-13] MEDS: Citalopram 20 MG TAB PO SCH (08:00)
[2020-07-13] MEDS: Loratadine 10 MG TAB PO SCH (08:00)
[2020-07-13] MEDS: Amlodipine 10 MG TAB PO SCH (08:00)
[2020-07-13] MEDS: predniSONE 20 MG TAB PO SCH (08:00)
[2020-07-13] MEDS: Carvedilol 3.125 MG TAB PO SCH ×2 (08:00→17:36)
[2020-07-13] MEDS: Enoxaparin Sodium 40 MG/0.4 ML SYRINGE SC SCH (08:01)
[2020-07-13] MEDS: Calcium Carbonate 500 MG ChewTAB PO PRN ×2 (08:06→21:55)
[2020-07-13] MEDS: Fluticasone Propionate Nasal Spray 16 gm Bottle NASAL SCH (08:44)
[2020-07-13] MEDS: Azithromycin 250 MG TAB PO SCH (15:18)
[2020-07-13] MEDS: Simvastatin 5 MG TAB PO SCH (21:55)
[2020-07-14] MEDS: Calcium Carbonate 500 MG ChewTAB PO PRN ×4 (04:18→20:54)
[2020-07-14 04:25] LABS: #Eosinphils 0.1 thou/uL (0.0-0.7); #Lymphocytes 0.9 thou/uL (1.20-3.40); #Monocytes 0.7 thou/uL (0.11-0.59); #Neutrophils 3.7 thou/uL (1.40-6.50); %Basophils 0.6 % (0.0-1.0); %Eosinophils 1.8 % (0.0-10.0); %Monocytes 13.3 % (0.0-10.0); %Neutrophils 68.4 % (42.0-75.0); Hemoglobin 14.3 g/dL (14.0-18.0); Mean Corpuscular Hemoglobin 32.9 pg (27.0-31.0); Mean Platelet Volume 8.4 fL (7.4-10.4); Platelet Count 197 thou/uL (130-400); RBC Distribution Width 14.1 % (11.5-14.5); Red Blood Cell (RBC) Count 4.35 mill/uL (4.70-6.10); White Blood Cell (WBC) Count 5.4 thou/uL (4.8-10.8)
[2020-07-14 04:51] LABS: ALT (SGPT) 26 U/L (8-55); AST (SGOT) 30 U/L (5-34); Albumin 3.4 g/dL (3.4-4.8); Alkaline Phosphatase 99 U/L (40-110); BUN (Urea Nitrogen) 22 mg/dL (8.4-25.7); Bilirubin, Total 0.7 mg/dL (0.2-1.2); Calc. Creatinine Clearance 103 mL/min (70-130); Calcium 8.9 mg/dL (7.8-10.44); Globulin 2.6 g/dL (2.4-3.5); Glucose 116 mg/dL (80-115)
[2020-07-14 05:01] LABS: Anion Gap 15 mmol/L (10-20); Carbon Dioxide 36 mmol/L (23-31); Chloride 80 mmol/L (98-107); Potassium 4.4 mmol/L (3.5-5.1); Sodium 127 mmol/L (136-145)
--- NOTE | 2020-07-14 06:41 | PDOC.FM ---
- Subjective Subjective: Mr. Velasquez reports improvement in his breathing. He also reports significant urination yesterday and an improvement in frequency of his productive cough. Denies headache and CP. - Objective Vital Signs & Weight: Vital Signs (12 hours) Temp Pulse Resp BP Pulse Ox 07/14/20 04:00 98.8 F 119 H 18 143/68 H 92 L 07/14/20 02:10 84 16 07/13/20 22:19 85 16 07/13/20 20:00 98.9 F 83 20 132/77 100 07/13/20 18:54 16 Weight Weight 72.575 kg Most Recent Monitor Data Heart Rate from ECG 102 NIBP 146/94 NIBP BP-Mean 111 Respiration from ECG 32 SpO2 94 I&O: 07/12/20 07/13/20 07/14/20 06:59 06:59 06:59 Intake Total 422 320 480 Output Total 1775 3080 450 Balance -1353 -5760 30 Result Diagrams: 07/14/20 04:12 07/14/20 04:12 EKG Reviewed by me: Yes (tele: SR 80s) Phys Exam - Physical Examination Constitutional: NAD HEENT: moist MMs, sclera anicteric Neck: full ROM Respiratory: wheezing present, clear to auscultation bilateral Cardiovascular: RRR Dx/Plan - Plan Plan: Acute hypoxic respiratory failure, improved 2/2 COPD exacerbation and new onset HF Presented satting in the 80s without O2 and 90s with high flow. JVD present on exam, 2+ pitting edema b/l LE. BNP 265. -CXR suggestive of COVID PNA, but rapid swab is negative -Chest CT: b/l upper lobe consolidations, bronchiectasis, hilar lymphadenopathy, debris in trachea, periapical abscess in mandibular teeth -Echo 07/11: EF 50-55%, diastolic dysfunction, mild tricuspid regurg -Continue home COPD inhalers -Space out duoneb to rosi Q6H, PRN Q4H -D/C prednisone today, received 5 days. -Start 40mg PO daily today. -Continue Azithro (07/10), Day 5 today -Start Coreg 3.125mg BID -Continue strict I/Os, daily weights. Patient had 2200 urine output yesterday. -Will need home O2. Consult CM Possible CAP, ruled out History of significant mold exposure in [place] -Chest CT: b/l upper lobe consolidations, bronchiectasis, hilar lymphadenopathy -Procal .06 therefore unlikely bacterial infection -Continue Azithro. Discontinue Rocephin (07/11-). Hypokalemia, resolved Likely 2/2 duoneb use. K 3.4 -> 3.9 after 40 mEq -Monitor with am BMP Chronic hyponatremia Na 129 -> 133 -> 131-> 130. At baseline per chart review -Encourage PO intake Elevated D-Dimer -elevated at 1.05 -CTA negative for PE Indeterminate troponin -Trend .054, 0.126, 0.171, 0.22, 0.415, 0.298 -EKG PRN for CP Transaminitis, resolved -Likely transient vs 2/2 poor perfusion -follow up outpatient HTN -continue home meds GERD -continue home meds HLD -continue home meds Depression -continue home meds Daily alcohol use -ASE protocol in place PCP: Colette Code: FULL DVT ppx: Lovenox Dispo: Home pending symptom improvement and further medical management Addendum - Attending - Attending Attestation Date/Time: 07/14/20 1104 I personally evaluated the patient and discussed the management with Dr. Carver. I agree with the History, Examination, Assessment and Plan documented above with any addition or exceptions noted below. Patient reports feeling improved. Continue diuresis. Wean O2 as tolerated. Hyponatremia somewhat worse, suspect combination of poor solute intake, beer potomania, and hypervolemic hyponatremia. Continue to monitor. Continue treatment of his COPD.
[2020-07-14] MEDS: Fluticasone Propionate Nasal Spray 16 gm Bottle NASAL SCH (08:03)
[2020-07-14] MEDS: Enoxaparin Sodium 40 MG/0.4 ML SYRINGE SC SCH (08:03)
[2020-07-14] MEDS: Carvedilol 3.125 MG TAB PO SCH ×2 (08:04→16:29)
[2020-07-14] MEDS: Furosemide 20 MG TAB PO SCH (08:04)
[2020-07-14] MEDS: Loratadine 10 MG TAB PO SCH (08:04)
[2020-07-14] MEDS: predniSONE 20 MG TAB PO SCH (08:04)
[2020-07-14] MEDS: Amlodipine 10 MG TAB PO SCH (08:05)
[2020-07-14] MEDS: Citalopram 20 MG TAB PO SCH (08:06)
--- NOTE | 2020-07-14 11:59 | PQF ---
CLINICAL DOCUMENTATION CLARIFICATION FORM: Dear Dr. Carver Date: 07/14/20 Please exercise your independent, professional judgment in responding to the clarification form. Clinical indicators are provided on the bottom of this form for your review. Please check appropriate box(es): HEART FAILURE: A. ACUITY [ x ] Acute [ ] Acute on Chronic [ ] Chronic B. TYPE: [ ] Systolic / HFrEF [ x ] Diastolic / HFpEF [ ] Combined Systolic / Diastolic [ ] Hypertensive Heart and Kidney disease [ ] Hypertensive Heart Disease [ ] Hypertensive Kidney Disease [ ] Other diagnosis [ ] Unable to determine In addition, please specify: Present on Admission (POA): [ x ] Yes [ ] No [ ] Unable to determine For continuity of documentation, please document condition throughout progress notes and discharge summary. Thank You. To be completed by CDI/Coding staff for physician review: CLINICAL INDICATORS - SIGNS / SYMPTOMS / LABS / RESULTS AND LOCATION IN EMR PN 07/11-TEZ: "QUESTION OF CONCURRENT SYSTOLIC HEART FAILURE" PN 07/14-CARVER: "NEW ONSET HEART FAILURE" ECHO 07/11: "EF 50-55%, DIASTOLIC DYSFUNCTION, MILD TRICUSPID REGURG" BNP 265.1 RISKS FACTORS / RESULTS AND LOCATION IN EMR ACUTE RESPIRATORY FAILURE (PN 07/14- CARVER) 2+ PITTING EDEMA BLE (PN 07/14-CARVER) TREATMENTS / RESULTS AND LOCATION IN EMR STRICT I/Os & DAILY WEIGHTS TELEMETRY MONITORING COREG (07/13-PRESENT) NORVASC (07/11-PRESENT) IV LASIX (ER) PO LASIX (START 07/14) CDS Signature: Sailaja Colon RN Phone #: [phone] Date: 07/14/20 This is a permanent part of the Medical Record [facility]
[2020-07-14] MEDS: Azithromycin 250 MG TAB PO SCH (14:02)
[2020-07-14] MEDS: Acetaminophen 325 MG TAB PO PRN ×2 (15:21→20:55)
[2020-07-14] MEDS: Simvastatin 5 MG TAB PO SCH (20:54)
[2020-07-15] MEDS: Calcium Carbonate 500 MG ChewTAB PO PRN ×3 (02:27→15:39)
[2020-07-15 04:52] LABS: #Eosinphils 0.2 thou/uL (0.0-0.7); #Monocytes 0.8 thou/uL (0.11-0.59); #Neutrophils 3.5 thou/uL (1.40-6.50); %Basophils 0.3 % (0.0-1.0); %Eosinophils 2.9 % (0.0-10.0); %Monocytes 14.1 % (0.0-10.0); %Neutrophils 64.8 % (42.0-75.0); Hemoglobin 14.3 g/dL (14.0-18.0); Mean Corpuscular Hemoglobin 33.3 pg (27.0-31.0); Mean Platelet Volume 8.4 fL (7.4-10.4); Platelet Count 190 thou/uL (130-400); RBC Distribution Width 14.2 % (11.5-14.5); Red Blood Cell (RBC) Count 4.29 mill/uL (4.70-6.10); White Blood Cell (WBC) Count 5.4 thou/uL (4.8-10.8)
[2020-07-15 05:02] LABS: ALT (SGPT) 25 U/L (8-55); AST (SGOT) 30 U/L (5-34); Albumin 3.5 g/dL (3.4-4.8); Alkaline Phosphatase 93 U/L (40-110); BUN (Urea Nitrogen) 23 mg/dL (8.4-25.7); Bilirubin, Total 0.7 mg/dL (0.2-1.2); Calc. Creatinine Clearance 95 mL/min (70-130); Calcium 9.2 mg/dL (7.8-10.44); Globulin 2.5 g/dL (2.4-3.5); Glucose 120 mg/dL (80-115)
[2020-07-15 05:13] LABS: Anion Gap 15 mmol/L (10-20); Carbon Dioxide 35 mmol/L (23-31); Chloride 83 mmol/L (98-107); Potassium 4.1 mmol/L (3.5-5.1); Sodium 129 mmol/L (136-145)
--- NOTE | 2020-07-15 06:57 | PDOC.FM ---
- Subjective Subjective: Mr. Velasquez is comfortable this morning with no complaints. He reports improvement in his breathing and says he has been urinating a lot. - Objective Vital Signs & Weight: Vital Signs (12 hours) Temp Pulse Resp BP Pulse Ox 07/15/20 06:50 88 L 07/15/20 06:48 88 16 90 L 07/15/20 04:00 98.5 F 89 18 141/80 H 92 L 07/14/20 20:00 98.7 F 84 134/82 95 07/14/20 19:24 83 16 91 L Weight Weight 72.03 kg Most Recent Monitor Data Heart Rate from ECG 102 NIBP 146/94 NIBP BP-Mean 111 Respiration from ECG 32 SpO2 94 I&O: 07/13/20 07/14/20 07/15/20 06:59 06:59 06:59 Intake Total 872 949 0022 Output Total 3080 450 2120 Balance -2760 30 160 Result Diagrams: 07/15/20 04:10 07/15/20 04:10 EKG Reviewed by me: Yes (tele: 12 beats MAT, ST 80-90s) Phys Exam - Physical Examination Constitutional: NAD HEENT: moist MMs, sclera anicteric Neck: full ROM coarse breath sounds Cardiovascular: RRR, no significant murmur Gastrointestinal: soft, non-tender Musculoskeletal: pulses present, edema present (1+ R>L) Neurological: non-focal, moves all 4 limbs Psychiatric: normal affect, A&O x 3 Dx/Plan - Plan Plan: Acute hypoxic respiratory failure, improved 2/2 COPD exacerbation and new onset HF Presented satting in the 80s without O2 and 90s with high flow. JVD present on exam, 2+ pitting edema b/l LE. BNP 265. -CXR suggestive of COVID PNA, but rapid swab is negative -Chest CT: b/l upper lobe consolidations, bronchiectasis, hilar lymphadenopathy, debris in trachea, periapical abscess in mandibular teeth -Echo 07/11: EF 50-55%, diastolic dysfunction, mild tricuspid regurg -Start on atrovent and symbicort to go home on -Du[place]ocky PRN, received 5 days of prednisone -Continue 40mg PO lasix -Continue Azithro (07/10), Day 6 today -Continue Coreg 3.125mg BID -Continue strict I/Os, daily weights. Patient had 2120 urine output yesterday. -Patient evaluated for home O2 - 100% on RA, has remained 88-100% on RA. Will not require O2 going home. Possible CAP, ruled out History of significant mold exposure in [place] -Chest CT: b/l upper lobe consolidations, bronchiectasis, hilar lymphadenopathy -Procal .06 therefore unlikely bacterial infection -Continue Azithro. Discontinue Rocephin (07/11-). Likely discontinue azithromycin tomorrow. Hypokalemia, resolved - Likely 2/2 duoneb use -Monitor with am BMP Chronic hyponatremia Na 129, baseline per chart review -Encourage PO intake Elevated D-Dimer -elevated at 1.05 -CTA negative for PE Indeterminate troponin -Trend .054, 0.126, 0.171, 0.22, 0.415, 0.298 -EKG PRN for CP Transaminitis, resolved -Likely transient vs 2/2 poor perfusion -follow up outpatient HTN -continue home meds GERD -continue home meds HLD -continue home meds Depression -continue home meds Daily alcohol use -ASE protocol in place PCP: Colette Code: FULL DVT ppx: Lovenox Dispo: Discharge home today. Has appointment with Dr. Alvarenga tomorrow. Addendum - Attending - Attending Attestation Date/Time: 07/15/20 1141 I personally evaluated the patient and discussed the management with Dr. Carver. I agree with the History, Examination, Assessment and Plan documented above with any addition or exceptions noted below. Patient stable and ready for discharge. O2 sats normal with ambulation. He feels well and ready to go home.
[2020-07-15] MEDS: Citalopram 20 MG TAB PO SCH (08:00)
[2020-07-15] MEDS: Furosemide 20 MG TAB PO SCH (08:00)
[2020-07-15] MEDS: Enoxaparin Sodium 40 MG/0.4 ML SYRINGE SC SCH (08:00)
[2020-07-15] MEDS: Loratadine 10 MG TAB PO SCH (08:00)
[2020-07-15] MEDS: Fluticasone Propionate Nasal Spray 16 gm Bottle NASAL SCH (08:00)
[2020-07-15] MEDS: Carvedilol 3.125 MG TAB PO SCH ×2 (08:01→15:40)
[2020-07-15] MEDS: Amlodipine 10 MG TAB PO SCH (08:01)
[2020-07-15] MEDS: Acetaminophen 325 MG TAB PO PRN ×2 (08:01→15:40)
[2020-07-15] MEDS ORDERED: Ipratropium Oral Inhaler INH SCH (08:45)
[2020-07-15] MEDS ORDERED: Mometasone 200 MCG/Formoterol 5 MCG 120 PUFF INHALER INH SCH ×2 (09:15→18:30)
[2020-07-15 11:21] VITALS: TEMP 97.6
[2020-07-15 15:39] VITALS: BP 122/71
--- NOTE | 2020-07-16 14:12 | DIS ---
DATE OF ADMISSION: 07/10/2020 DATE OF DISCHARGE: 07/15/2020 RESIDENT: Kobe Carver M.D. ADMITTING ATTENDING: Vasu Yang M.D. DISCHARGE ATTENDING: Solomon Pratt M.D. CONSULT: 1. Pulmonology, Dr. Ardon. 2. Case Management. 3. PT and Speech. PROCEDURES: 1. Chest x-ray revealed old bilateral heterogeneously distributed reticulonodular infiltrate. 2. Electrocardiogram revealed normal sinus rhythm. 3. Chest CTA, small focal area of consolidation in right upper lobe, minimal bronchiectasis right lower lobe, dilation of the esophagus with debris within the esophagus, mild prominent hilar lymph nodes. No evidence of pulmonary embolus, debris in the trachea and periapical abscess in the right mandibular teeth. 4. Venogram revealed no evidence of DVT. Prominent bilateral lower extremity subcu edema. 5. Echocardiogram revealed ejection fraction 50% to 55%, and impaired relaxation compatible with diastolic dysfunction. PRIMARY DIAGNOSES: 1. Acute hypoxic respiratory failure secondary to chronic obstructive pulmonary disease exacerbation and new onset heart failure with preserved ejection fraction. 2. Hypokalemia. SECONDARY DIAGNOSES: 1. Possible community-acquired pneumonia ruled out. 2. Chronic hyponatremia. 3. Elevated D-dimer. 4. Indeterminate troponin. 5. Transaminitis. 6. Hypertension. 7. GERD. 8. Hyperlipidemia. 9. Depression. 10. Daily alcohol use. DISCHARGE MEDICATIONS: 1. Aspirin 325 mg p.o. daily. 2. Pravastatin 20 mg p.o. at bedtime. 3. Albuterol 1 puff inhaler q.4 hours p.r.n. 4. Vitamin C 500 mg p.o. daily. 5. Amlodipine 10 mg p.o. daily. 6. Metamucil 0.52 g p.o. p.r.n. 7. Prilosec 10 mg p.o. daily. 8. Lisinopril 40 mg p.o. daily. 9. Xyzal 5 mg p.o. daily p.r.n. 10. Flovent 50 mcg inhaled p.r.n. 11. Citalopram 20 mg p.o. daily. 12. Claritin 10 mg p.o. daily. 13. Coreg 3.125 mg p.o. b.i.d. 14. Dulera two puffs inhaled b.i.d. 15. Lasix 20 mg p.o. daily. Discontinued medications: None. HISTORY OF PRESENT ILLNESS AND HOSPITAL COURSE: Mr. Velasquez is a 70-year-old male with past medical history of COPD, hypertension, GERD, hyperlipidemia, depression and alcoholism, presenting with complaint of shortness of breath. Patient states he has been short of breath since April, but over the last few weeks that has increased. He has been unable to lie flat in bed at night, has been sleeping in a recliner. He also endorsed lower extremity swelling making it hard for him to walk. He endorses a cough which is new over the last few days with increased sputum production. He does not require home O2. The patient denies fever, chills, headache, chest pain, abdominal pain. 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 On admission, the patient's BNP was found to be 265. His sodium was 129. His troponin was 0.05 and patient was hypoxic with an O2 saturation at 88. The patient was first admitted to the [facility], received high-flow nasal cannula on. He was started on DuoNeb and oral prednisone for his COPD exacerbation and received IV Lasix for a presumed heart failure exacerbation, though he did not have a previous diagnosis of heart failure. The patient's oxygenation improved and he was oxygenating well on nasal cannula. He was transferred out of the [facility]. The patient continued prednisone for five days and continued nebulizers. We continued to diurese the patient, which improved his fluid status and respiratory status. The patient was diuresed a total of 5 to 6 L. Echo revealed diastolic dysfunction and mild tricuspid regurgitation. The patient was started on Coreg 3.125 mg b.i.d. The patient also received 6 days of azithromycin for a suspected community-acquired pneumonia. This was thought to be unlikely due to low procal. The patient was recommended by PT to go to rehab. The patient denied rehab, but was agreeable to home health. The patient was discharged home with new medication of Coreg and have home health come out to continue working PT and OT with him. Of note, patient also had elevated D-dimer on admission. CTA was negative for PE. Troponins were trended and were negative. DISPOSITION: Stable. DISCHARGE INSTRUCTIONS: 1. Location: Home with home health. 2. Diet: Heart healthy. 3. Activity: As tolerated. 4. Followup: Follow up with PCP, Dr. Alvarenga on July 16, the patient had appointment at 10:30 a.m. Job ID: [id number] [email or web address]
== END 2020-07-15 17:30 | disposition home or self-care (01) | DRG 291 ==
LOC: ERS 14:38 → IMCU/EMU 18:22 → 2NO 07-11 19:20
PROVIDERS: ADMIT Family Medicine; ATTEND Family Medicine
DX: I11.0 Hypertensive heart disease with heart failure (principal); I50.31 Acute diastolic (congestive) heart failure; J96.01 Acute respiratory failure with hypoxia; J44.1 Chronic obstructive pulmonary disease with (acute) exacerbation; E87.1 Hypo-osmolality and hyponatremia; Z20.828 Contact with and (suspected) exposure to other viral communicable diseases; E78.5 Hyperlipidemia, unspecified; F17.210 Nicotine dependence, cigarettes, uncomplicated; K21.9 Gastro-esophageal reflux disease without esophagitis; F32.9 Major depressive disorder, single episode, unspecified; R79.89 Other specified abnormal findings of blood chemistry; R74.01 Elevation of levels of liver transaminase levels; F10.20 Alcohol dependence, uncomplicated; E87.6 Hypokalemia; Z79.51 Long term (current) use of inhaled steroids; Z79.82 Long term (current) use of aspirin; Z79.899 Other long term (current) drug therapy
CPT/HCPCS: 36415; 71045; 71275; 80053; 82550; 82553; 83605; 83690; 83735; 83880; 84145; 84484; 85025; 85379; 87040; 87086; 87635; 93005; 93306; 93970; 94640; 96365; 96367; 96375; J0456; J0696; J1650; J1885; J1940; J3475; J3490; J7050; J7512; J7611; J7620; Q9967; U0002; U0003